=== PATIENT | male | born 1980 | race Two or more races ===

== ENCOUNTER → 2017-09-19 | Outpatient (CLI) | payer OTHER ==
--- NOTE | 2017-09-19 10:38 | RAD ---
Bilateral lower extremity arterial ultrasound, 09/19/2017: History: Bilateral leg pain Duplex evaluation of the major arteries in both lower extremities was performed including grayscale, color-flow and spectral Doppler analysis. The common femoral arteries are widely patent demonstrating triphasic Doppler waveforms. Both superficial femoral and popliteal arteries demonstrate good triphasic waveforms. No significant velocity acceleration is identified in the femoral or popliteal arteries to suggest significant stenosis. There are mild scattered plaques in the arteries in both lower legs. The posterior tibial, peroneal and anterior tibial arteries are patent demonstrating predominantly triphasic Doppler waveforms. The distal left posterior tibial Doppler waveform is monophasic but of good amplitude. Patent dorsalis pedis arteries are present bilaterally demonstrating biphasic Doppler waveforms. Resting NILAM measurements were also obtained. Normal NILAM measurements of 1.11 on the right and 1.09 on the left were obtained. IMPRESSION: 1. Mild atherosclerotic plaquing in the lower leg arteries. 2. No evidence of significant arterial occlusive disease in either lower extremity. 3. Normal bilateral resting NILAM measurements.
--- NOTE | 2017-09-19 11:44 | RAD ---
Bilateral lower extremity venous reflux ultrasound exam, 09/19/2017: History: Pain Duplex evaluation of the saphenous veins in both lower extremities was performed including grayscale, color-flow and spectral Doppler analysis. The greater saphenous veins in the upper thighs are patent and demonstrate no significant reflux. The lesser saphenous veins in the calves are also patent and demonstrate no significant reflux. IMPRESSION: No significant reflux in the greater saphenous or lesser saphenous veins in either lower extremity.
== END | disposition home or self-care (01) ==
LOC: US 08:01
PROVIDERS: ATTEND Family Medicine
DX: I70.203 Unspecified atherosclerosis of native arteries of extremities, bilateral legs (principal); G72.9 Myopathy, unspecified; R74.8 Abnormal levels of other serum enzymes
CPT/HCPCS: 93922; 93925; 93970